=== PATIENT | male | born 1980 | race Caucasian/White ===

== ENCOUNTER 2020-08-11 19:08 | Emergency (ER) | payer BC, OTHER ==
[~2020-08-11] VITALS: Ht 170.2 cm; Wt 83.9 kg
[2020-08-11 19:22] VITALS: BP 126/83
--- NOTE | 2020-08-11 19:29 | NUR ---
PT AAOX4. AMBULATORY WITH STEADY GAIT. BIBSELF C/O R EYE BLURRING AND VISUAL CHANGES NOTED SINCE YESTERDAY. PLACED IN BED 1 ON MONITOR AND PULSE OX. AWAITING PA FOR EVAL AND ORDERS.
--- NOTE | 2020-08-11 19:44 | NUR ---
US AT BEDSIDE.
== END 2020-08-11 20:32 | disposition home or self-care (01) ==
LOC: ER 19:08
DX: H53.8 Other visual disturbances (principal)